=== PATIENT | female | born 1970 | race Caucasian/White ===

== ENCOUNTER 2023-10-01 08:30 | Day surgery (SDC) | payer BC ==
[~2023-10-01 08:30] MED LIST: Lactated Ringers 1,000 ML IV SCH; Sodium Chloride 0.9% 10 ML Syringe FLUSH PRN; Sodium Chloride 0.9% 10 ML Syringe FLUSH SCH
[2023-10-01] MEDS ORDERED: fentaNYL 100 MCG/2 ML SDV ONE (09:27)
[2023-10-01] MEDS ORDERED: Propofol 200 MG/20 ML SDV ONE ×2 (09:27→09:52)
[2023-10-01] MEDS ORDERED: Lidocaine 1% 6 ML ONE (09:28)
== END 2023-10-01 10:40 | disposition home or self-care (01) ==
LOC: JD.SDS 08:30
PROVIDERS: ATTEND Specialist
DX: Z12.11 Encounter for screening for malignant neoplasm of colon (principal); D12.2 Benign neoplasm of ascending colon; E78.00 Pure hypercholesterolemia, unspecified; F17.210 Nicotine dependence, cigarettes, uncomplicated; Z90.49 Acquired absence of other specified parts of digestive tract; Z79.899 Other long term (current) drug therapy
CPT/HCPCS: 45385; J2704; J3010; J7120; 00811; J3490